=== PATIENT | female | born 1975 | race Caucasian/White ===

== ENCOUNTER 2020-07-27 04:49 | Day surgery (SDC) | payer OTHER ==
[2020-07-26 18:10] VITALS: BMI 27.4
[2020-07-27] MEDS ORDERED: LIDOCAINE HCL/PF 2% SDV 5ML VIAL ONE (08:22)
[2020-07-27] MEDS ORDERED: PROPOFOL 20 ML ONE ×2 (08:22)
[2020-07-27] MEDS ORDERED: MIDAZOLAM HCL 2 MG/2 ML SINGLE DOSE VIAL ONE (08:22)
[2020-07-27] MEDS ORDERED: KETOROLAC TROMETHAMINE 30 MG/1 ML VIAL ONE (10:08)
[2020-07-27] MEDS ORDERED: DEXAMETHASONE SOD PHOSPHATE 4 MG/1 ML VIAL ONE (10:08)
[2020-07-27] MEDS ORDERED: ceFAZolin SODIUM 1 GM VIAL IVPB ONE (10:21)
[2020-07-27] MEDS ORDERED: ceFAZolin SODIUM 1 GM VIAL ONE (10:21)
[2020-07-27] MEDS ORDERED: IBUPROFEN 600 MG TABLET (FP) PO PRN (11:20)
[2020-07-27] MEDS ORDERED: oxyCODONE HCL 5 MG TABLET PO PRN ×2 (11:20→13:28)
[2020-07-27] MEDS ORDERED: ONDANSETRON 4 MG/2 ML VIAL IVPUSH PRN ×2 (11:20→13:28)
[2020-07-27] MEDS ORDERED: IBUPROFEN 800 MG/8 ML IJ IVPB PRN (11:20)
[2020-07-27] MEDS ORDERED: ELECTROLYTE-148 SOLN 1,000 ML IV SCH (11:30)
[2020-07-27 12:41] VITALS: TEMP 97.5
[2020-07-27 13:05] VITALS: BP 127/74; PULSE 59
[2020-07-27] MEDS ORDERED: LACTATED RINGERS SOLUTION 1,000 ML IV SCH (13:30)
[2020-07-27] MEDS ORDERED: ACETAMINOPHEN 325 MG TABLET (FP) ONE (13:41)
== END 2020-07-27 13:06 | disposition home or self-care (01) ==
LOC: JASU-SURG 04:49
PROVIDERS: ATTEND Obstetrics & Gynecology
PROC: 0U5B8ZZ Destruction of Endometrium, Via Natural or Artificial Opening Endoscopic (ICD-10-PCS; principal; 2020-07-27 09:00)
DX: N92.1 Excessive and frequent menstruation with irregular cycle (principal); E11.9 Type 2 diabetes mellitus without complications; Z79.84 Long term (current) use of oral hypoglycemic drugs
CPT/HCPCS: 84703; 94760

== ENCOUNTER 2023-12-10 08:17 | Emergency (ER) | payer OTHER ==
[2023-12-10 08:30] VITALS: BP 152/83; PULSE 80; RESP 18; TEMP 98.4; BMI 30.2
[2023-12-10] MEDS ORDERED: IBUPROFEN 600 MG TABLET (FP) PO ONE (09:26)
[2023-12-10] MEDS: IBUPROFEN 600 MG TABLET (FP) PO ONE (09:27)
== END 2023-12-10 10:14 | disposition home or self-care (01) ==
LOC: JER 08:17
DX: M54.50 Low back pain, unspecified (principal); S32.009D Unspecified fracture of unspecified lumbar vertebra, subsequent encounter for fracture with routine healing; X50.0XXD Overexertion from strenuous movement or load, subsequent encounter
CPT/HCPCS: 72100-TC-FY; 99283-25